=== PATIENT | male | born 1940 | race Caucasian/White ===

== ENCOUNTER → 2016-08-16 | Day surgery (SDC) | payer MEDICARE ==
[~2016-08-16] VITALS: Ht 175.3 cm; Wt 86.0 kg
[~2016-08-16] MED LIST: ACETAMINOPHEN325 MG PO; ASMANEX110 MC1 INH; ASMANEX220 MC1 INH; ASPIRIN EC81 MG PO; COLACE100 MG PO; DILAUDID 2MG(HYD2 MG PO; ECOTRIN325 MG PO; ECOTRIN81 MG PO; FLOMAX0.4 MG PO; GLUCOSAMINE &1 EAC1 PO; HYDROCHLOROTHIA25 MG PO; IBUPROFEN600 MG PO; LEVAQUIN500 MG PO; LYRICA 75MG CAP75 MG PO; METAMUCIL CAPSU1 CAP PO; MIRALAX17 GM PO; MULTILEX-T-M W1 EACH PO; OXYGEN M-15 INH; PRILOSEC20 MG PO; PROTONIX40 MG PO; PROVENTIL OR V6.7 GM INH; SAW PALMETTO160 MG PO; SPIRIVA HANDIHA1 KIT INH; ZESTRIL40 MG PO; ZOCOR20 MG PO
== END | disposition disaster alternative care site (69) ==
LOC: GPOC 08-13 11:00 → GEND 08-13 11:00 → GOPP 08:30
PROC: 0DB58ZX Excision of Esophagus, Via Natural or Artificial Opening Endoscopic, Diagnostic (ICD-10-PCS; principal; 2016-08-16)
PROC: 0DB68ZX Excision of Stomach, Via Natural or Artificial Opening Endoscopic, Diagnostic (ICD-10-PCS; 2016-08-16)
DX: K31.7 Polyp of stomach and duodenum (principal); K22.70 Barrett's esophagus without dysplasia; K21.0 Gastro-esophageal reflux disease with esophagitis; I12.9 Hypertensive chronic kidney disease with stage 1 through stage 4 chronic kidney disease, or unspecified chronic kidney disease; N18.3 Chronic kidney disease, stage 3 (moderate); J45.40 Moderate persistent asthma, uncomplicated; J96.11 Chronic respiratory failure with hypoxia; M17.11 Unilateral primary osteoarthritis, right knee; G47.34 Idiopathic sleep related nonobstructive alveolar hypoventilation; E78.5 Hyperlipidemia, unspecified; Z88.1 Allergy status to other antibiotic agents; Z88.4 Allergy status to anesthetic agent; Z96.653 Presence of artificial knee joint, bilateral; Z79.82 Long term (current) use of aspirin; Z79.899 Other long term (current) drug therapy
CPT/HCPCS: J7030